=== PATIENT | female | born 1960 | race Caucasian/White ===

== ENCOUNTER 2016-12-08 14:22 | Outpatient (CLI) | payer MEDICARE ==
[2016-12-08 14:56] LABS: Hemoglobin A1c 5.8 % (4.0-6.0)
[2016-12-08 15:01] LABS: ALT (SGPT) 20 U/L (0-55); AST (SGOT) 14 U/L (5-34); Albumin 3.8 g/dL (3.5-5.0); Alkaline Phosphatase 123 U/L (40-150); Anion Gap 13 mmol/L (10-20); BUN (Urea Nitrogen) 12 mg/dL (9.8-20.1); Bilirubin, Total 0.3 mg/dL (0.2-1.2); Calc. Creatinine Clearance 0 mL/min (70-130); Calcium 9.3 mg/dL (7.8-10.44); Carbon Dioxide 29 mmol/L (22-29); Chloride 105 mmol/L (98-107); Estimated GFR-MDRD 76; Globulin 2.7 g/dL (2.4-3.5); Glucose 108 mg/dL (70-105); Potassium 4.1 mmol/L (3.5-5.1); Protein, Total 6.5 g/dL (6.0-8.3); Sodium 143 mmol/L (136-145)
[2016-12-08 15:34] LABS: Free T4 (Free Thyroxine) 0.92 ng/dL (0.70-1.48); Thyroid Stimulating Hormone 0.9963 uIU/mL (0.35-4.94); Vitamin D, 25 Hydroxy 25.3 ng/mL (> 30.0)
== END 2016-12-08 14:23 | disposition home or self-care (01) ==
LOC: MADLAB 14:22
PROVIDERS: ATTEND Internal Medicine
DX: E03.9 Hypothyroidism, unspecified (principal); E78.00 Pure hypercholesterolemia, unspecified; R79.89 Other specified abnormal findings of blood chemistry
CPT/HCPCS: 36415; 80053; 82306; 83036; 84439; 84443

== ENCOUNTER 2017-01-21 12:20 | Outpatient (CLI) | payer MEDICAID, MEDICARE ==
[2017-01-21 12:42] LABS: #Basophils 0.2 thou/uL (0.0-0.2); #Eosinphils 0.2 thou/uL (0.0-0.7); #Lymphocytes 1.5 thou/uL (1.20-3.40); #Monocytes 0.5 thou/uL (0.11-0.59); #Neutrophils 6.9 thou/uL (1.40-6.50); %Eosinophils 1.9 % (0.0-10.0); %Monocytes 5.4 % (0.0-10.0); %Neutrophils 74.7 % (42.0-75.0); Hemoglobin 15.2 g/dL (12.0-16.0); Mean Corpuscular HGB CONC 32.5 g/dL (32.0-36.0); Mean Corpuscular Volume 98.4 fl (81.0-99.0); Mean Platelet Volume 6.4 fL (7.4-10.4); Platelet Count 283 thou/uL (130-400); RBC Distribution Width 13.4 % (11.5-14.5); Red Blood Cell (RBC) Count 4.74 mill/uL (4.20-5.40); White Blood Cell (WBC) Count 9.2 thou/uL (4.8-10.8)
[2017-01-21 13:05] LABS: ALT (SGPT) 22 U/L (0-55); AST (SGOT) 15 U/L (5-34); Albumin 4.4 g/dL (3.5-5.0); Alkaline Phosphatase 165 U/L (40-150); Anion Gap 16 mmol/L (10-20); BUN (Urea Nitrogen) 19 mg/dL (9.8-20.1); Bilirubin, Total 0.3 mg/dL (0.2-1.2); CRP (Inflammatory) 1.61 mg/dL (= or < 0.5); Calc. Creatinine Clearance 0 mL/min (70-130); Calcium 9.6 mg/dL (7.8-10.44); Carbon Dioxide 25 mmol/L (22-29); Chloride 102 mmol/L (98-107); Estimated GFR-MDRD 74; Globulin 3.1 g/dL (2.4-3.5); Glucose 78 mg/dL (70-105); Protein, Total 7.5 g/dL (6.0-8.3); Sodium 139 mmol/L (136-145)
[2017-01-23 08:23] LABS: Antinuclear AB Negative (Negative)
== END 2017-01-21 12:21 | disposition home or self-care (01) ==
LOC: MADLAB 12:20
PROVIDERS: ATTEND Internal Medicine Rheumatology
DX: M06.4 Inflammatory polyarthropathy (principal)
CPT/HCPCS: 36415; 80053; 85025; 85652; 86038; 86140; 86200; 86430

== ENCOUNTER 2019-04-16 16:01 | Emergency (ER) | payer MEDICARE, OTHER ==
--- NOTE | 2019-04-16 16:47 | CT ---
Exam: Head CT without contrast HISTORY: Headache COMPARISON: 08/27/2013 FINDINGS: Hemorrhage: No intraparenchymal hemorrhage or extra-axial hematoma. Brain parenchyma: Cortical lamb-white matter differentiation is preserved. No mass effect or midline shift. Basilar cisterns are patent. Ventricular system: Ventricles and sulci are patent and symmetric. Calvarium: Intact. Sinuses and mastoid air cells: Mild mucosal disease involving the left ethmoid air cells and left sph enoid sinus. IMPRESSION: 1. No acute intracranial process 2. Left paranasal sinus disease.
[2019-04-16 16:58] LABS: #Basophils 0.1 thou/uL (0.0-0.2); #Eosinphils 0.2 thou/uL (0.0-0.7); #Lymphocytes 1.6 thou/uL (1.20-3.40); #Monocytes 0.4 thou/uL (0.11-0.59); #Neutrophils 7.5 thou/uL (1.40-6.50); %Eosinophils 2.3 % (0.0-10.0); %Monocytes 3.6 % (0.0-10.0); %Neutrophils 77.2 % (42.0-75.0); Hemoglobin 13.1 g/dL (12.0-16.0); Mean Corpuscular HGB CONC 31.8 g/dL (32.0-36.0); Mean Corpuscular Hemoglobin 30.1 pg (27.0-31.0); Mean Corpuscular Volume 94.7 fL (78.0-98.0); Mean Platelet Volume 5.4 fL (7.4-10.4); Platelet Count 253 thou/uL (130-400); RBC Distribution Width 13.5 % (11.5-14.5); Red Blood Cell (RBC) Count 4.34 mill/uL (4.20-5.40); White Blood Cell (WBC) Count 9.7 thou/uL (4.8-10.8)
[2019-04-16 16:58] LABS: Bilirubin Negative (Negative); Blood, Urine Negative (Negative); Clarity Clear (Clear); Glucose, Urine (Dipstick) Negative (Negative); Leukocyte Negative (Negative); Nitrite Negative (Negative); Protein, Urine (Dipstick) Negative (Neg-Trace); Urobilinogen 0.2 mg/dL (Less than 2)
[2019-04-16 17:12] LABS: Anion Gap 16 mmol/L (10-20); BUN (Urea Nitrogen) 14 mg/dL (9.8-20.1); Calc. Creatinine Clearance 0 mL/min (70-130); Calcium 9.6 mg/dL (7.8-10.44); Carbon Dioxide 28 mmol/L (22-29); Chloride 103 mmol/L (98-107); Estimated GFR-MDRD 67; Glucose 146 mg/dL (70-105); Potassium 3.7 mmol/L (3.5-5.1); Sodium 143 mmol/L (136-145)
== END 2019-04-16 17:30 | disposition home or self-care (01) ==
LOC: MADERS 16:01
DX: H81.399 Other peripheral vertigo, unspecified ear (principal); J01.90 Acute sinusitis, unspecified
CPT/HCPCS: 36415; 70450; 80048; 81003; 85025

== ENCOUNTER 2019-05-30 10:31 | Emergency (ER) | payer MEDICARE, OTHER ==
--- NOTE | 2019-05-30 11:15 | RAD ---
Radiograph left ankle 3 views: DATE: 05/30/2019 HISTORY: 58-year-old female with traumatic left ankle pain FINDINGS: There is a 5 mm focal ossific density in the soft tissues slightly inferior to the distal tip of the fibula. This is probably an accessory ossicle rather than an avulsion fracture. Lateral soft tissue swelling. Diffuse soft tissue edema to a lesser degree elsewhere. Talar dome is maintained. Ankle mor tise is congruent. No definite acute fracture identified. IMPRESSION: 1. No acute fracture. 2. Lateral soft tissue edema.
[2019-05-30] MEDS ORDERED: Ibuprofen 800 MG TAB ONE (11:26)
== END 2019-05-30 11:50 | disposition home or self-care (01) ==
LOC: MADERS 10:31
DX: S93.402A Sprain of unspecified ligament of left ankle, initial encounter (principal); W18.42XA Slipping, tripping and stumbling without falling due to stepping into hole or opening, initial encounter

== ENCOUNTER 2019-07-16 16:24 | Emergency (ER) | payer MEDICARE, OTHER ==
--- NOTE | 2019-07-16 17:32 | RAD ---
LEFT ANKLE: 07/16/19 Three views. HISTORY: Ankle pain. Comparison made to exam of 05/30/19. Soft tissue swelling is seen laterally. There is a new fragment seen from the lateral malleolus when compared to prior study indicating an av ulsion fracture which may be acute. Degenerative changes at the tibiotalar joint again noted. Spurring from the plantar calcaneus again n oted. IMPRESSION: Evidence of new avulsion fracture from the lateral malleolus when compared to prior study. POS: OFF
== END 2019-07-16 18:55 | disposition home or self-care (01) ==
LOC: MADERS 16:24
DX: S82.62XA Displaced fracture of lateral malleolus of left fibula, initial encounter for closed fracture (principal); Z86.711 Personal history of pulmonary embolism; Z79.899 Other long term (current) drug therapy; W18.30XA Fall on same level, unspecified, initial encounter
CPT/HCPCS: 27786

== ENCOUNTER 2019-12-16 13:30 | Emergency (ER) | payer MEDICARE, MEDICAID ==
--- NOTE | 2019-12-16 14:49 | RAD ---
TWO VIEW CHEST: HISTORY: Cough. FINDINGS: Lungs are clear. No infiltrate. Heart and mediastinum appear normal. Vasculature normal. Osseous structures unremarkable. IMPRESSION: No evidence of infiltrate. POS: [facility]
== END 2019-12-16 15:13 | disposition home or self-care (01) ==
LOC: MADERS 13:30
DX: R05 Cough (principal); R09.81 Nasal congestion; Z79.899 Other long term (current) drug therapy
CPT/HCPCS: 71046

== ENCOUNTER 2021-06-10 14:47 | Emergency (ER) | payer MEDICARE, OTHER ==
[2021-06-10] MEDS ORDERED: Sodium Chloride 0.9% 1,000 ML ONE (15:32)
[2021-06-10 15:33] LABS: #Basophils 0.1 thou/uL (0.0-0.2); #Lymphocytes 0.6 thou/uL (1.20-3.40); #Monocytes 0.6 thou/uL (0.11-0.59); #Neutrophils 9.8 thou/uL (1.40-6.50); %Basophils 1.1 % (0.0-1.0); %Eosinophils 0.3 % (0.0-10.0); %Lymphocytes 5.1 % (21.0-51.0); %Monocytes 5.4 % (0.0-10.0); %Neutrophils 88.1 % (42.0-75.0); Anisocytosis SLIGHT = 6-15 cells (100X) (0-5/hpf); Hemoglobin 12.3 g/dL (12.0-16.0); MDiff Complete? YES; Macrocytosis SLIGHT = 6-15 cells (100X) (0-5/hpf); Mean Corpuscular HGB CONC 30.6 g/dL (32.0-36.0); Mean Corpuscular Hemoglobin 32.2 pg (27.0-31.0); Mean Corpuscular Volume 105.5 fL (78.0-98.0); Platelet Count 221 thou/uL (130-400); RBC Distribution Width 17.3 % (11.5-14.5); Red Blood Cell (RBC) Count 3.82 mill/uL (4.20-5.40); White Blood Cell (WBC) Count 11.2 thou/uL (4.8-10.8)
[2021-06-10 15:45] LABS: ALT (SGPT) 28 U/L (8-55); AST (SGOT) 17 U/L (5-34); Albumin 3.9 g/dL (3.4-4.8); Alkaline Phosphatase 124 U/L (40-110); Anion Gap 14 mmol/L (10-20); BUN (Urea Nitrogen) 10 mg/dL (9.8-20.1); Bilirubin, Total 0.3 mg/dL (0.2-1.2); Calc. Creatinine Clearance 0 mL/min (70-130); Calcium 10.1 mg/dL (7.8-10.44); Carbon Dioxide 29 mmol/L (23-31); Chloride 107 mmol/L (98-107); Globulin 3.3 g/dL (2.4-3.5); Glucose 106 mg/dL (80-115); Lipase 39 U/L (8-78); Potassium 3.6 mmol/L (3.5-5.1); Protein, Total 7.2 g/dL (5.8-8.1); Sodium 146 mmol/L (136-145)
== END 2021-06-10 16:35 | disposition home or self-care (01) ==
LOC: MADERS 14:47
DX: R11.2 Nausea with vomiting, unspecified (principal); R10.84 Generalized abdominal pain; J44.9 Chronic obstructive pulmonary disease, unspecified; K21.9 Gastro-esophageal reflux disease without esophagitis; Z86.711 Personal history of pulmonary embolism; Z85.6 Personal history of leukemia
CPT/HCPCS: 36415; 80053; 83690; 85025; 96372; 99284; J0500; J7050

== ENCOUNTER 2021-06-25 21:03 | Emergency (ER) | payer MEDICARE, OTHER ==
[2021-06-25] MEDS ORDERED: Morphine 2 MG/ML VIAL ONE (21:26)
[2021-06-25] MEDS ORDERED: Fentanyl 100 MCG/2 ML VIAL ONE ×2 (21:30→23:19)
[2021-06-25] MEDS ORDERED: Boostrix 0.5 ML (Tdap) VIAL ONE (22:06)
[2021-06-25] MEDS ORDERED: Bacitracin 1 PK ONE (23:31)
== END 2021-06-26 00:29 | disposition home or self-care (01) ==
LOC: MADERS 21:03
DX: S70.01XA Contusion of right hip, initial encounter (principal); S80.211A Abrasion, right knee, initial encounter; E03.9 Hypothyroidism, unspecified; J44.9 Chronic obstructive pulmonary disease, unspecified; K21.9 Gastro-esophageal reflux disease without esophagitis; Z79.899 Other long term (current) drug therapy; M25.511 Pain in right shoulder; Z23 Encounter for immunization; Z86.711 Personal history of pulmonary embolism; W18.30XA Fall on same level, unspecified, initial encounter; Y92.000 Kitchen of unspecified non-institutional (private) residence as the place of occurrence of the external cause
CPT/HCPCS: 71045; 72170; 90471; 90715; 96374; 96376; J2270; J3010

== ENCOUNTER 2021-07-03 14:42 | Emergency (ER) | payer MEDICARE, OTHER ==
[2021-07-03 15:45] LABS: Anisocytosis SLIGHT = 6-15 cells (100X) (0-5/hpf); Eosinophils 3 % (0-10); Hemoglobin 11.4 g/dL (12.0-16.0); Lymphocytes 44 % (21-51); MDiff Complete? YES; Macrocytosis SLIGHT = 6-15 cells (100X) (0-5/hpf); Mean Corpuscular HGB CONC 29.9 g/dL (32.0-36.0); Mean Corpuscular Volume 106.9 fL (78.0-98.0); Mean Platelet Volume 5.8 fL (7.4-10.4); Monocytes 5 % (0-10); Neutrophil 45 % (42-75); Ovalocytes SLIGHT = 2-5 cells (100X) (0-1/hpf); Platelet Count 312 thou/uL (130-400); Poikilocytosis SLIGHT = 6-15 cells (100X) (0-5/hpf); RBC Distribution Width 18.9 % (11.5-14.5); Reactive Lymphocytes 1 % (0-10); Red Blood Cell (RBC) Count 3.57 mill/uL (4.20-5.40); Rouleaux Formation SLIGHT = 1-5 cells (100X) (None Seen); Tear Drops SLIGHT = 2-5 cells (100X) (0-1/hpf); White Blood Cell (WBC) Count 1.2 thou/uL (4.8-10.8)
== END 2021-07-03 16:27 | disposition home or self-care (01) ==
LOC: MADERS 14:42
DX: S70.01XA Contusion of right hip, initial encounter (principal); S70.11XA Contusion of right thigh, initial encounter; S80.811A Abrasion, right lower leg, initial encounter; S80.211A Abrasion, right knee, initial encounter; D72.819 Decreased white blood cell count, unspecified; E03.9 Hypothyroidism, unspecified; J44.9 Chronic obstructive pulmonary disease, unspecified; K21.9 Gastro-esophageal reflux disease without esophagitis; Z86.711 Personal history of pulmonary embolism; Z79.899 Other long term (current) drug therapy; W19.XXXA Unspecified fall, initial encounter
CPT/HCPCS: 36415; 85025; 99283

== ENCOUNTER 2021-10-24 18:19 | Emergency (ER) | payer MEDICARE, MEDICAID ==
[2021-10-24 20:13] LABS: Anion Gap 15 mmol/L (10-20); BUN (Urea Nitrogen) 15 mg/dL (9.8-20.1); Calc. Creatinine Clearance 0 mL/min (70-130); Calcium 10.1 mg/dL (7.8-10.44); Carbon Dioxide 26 mmol/L (23-31); Chloride 108 mmol/L (98-107); Glucose 137 mg/dL (80-115); Potassium 4.6 mmol/L (3.5-5.1); Sodium 144 mmol/L (136-145)
[2021-10-24 20:19] LABS: Mean Corpuscular HGB CONC 33.2 g/dL (32.0-36.0); Mean Corpuscular Hemoglobin 32.6 pg (27.0-31.0); Mean Platelet Volume 12.6 fL (7.4-10.4); Platelet Count 18 thou/uL (130-400); RBC Distribution Width 14.5 % (11.5-14.5); Red Blood Cell (RBC) Count 2.45 mill/uL (4.20-5.40); White Blood Cell (WBC) Count 0.8 thou/uL (4.8-10.8)
[2021-10-24 20:20] LABS: Lymphocytes 70 % (21-51); MDiff Complete? YES; Monocytes 26 % (0-10); Neutrophil 4 % (42-75); Tear Drops SLIGHT = 2-5 cells (100X) (0-1/hpf)
[2021-10-24 20:21] LABS: Ovalocytes SLIGHT = 2-5 cells (100X) (0-1/hpf); Platelet Morphology Comment Appears Decreased
[2021-10-24] MEDS ORDERED: cefTRIAXone\\ROCEPHIN 1 GM VIAL ONE (20:51)
[2021-10-24] MEDS ORDERED: Sodium Chloride 0.9% 250 ML 250 ML ONE (20:51)
[2021-10-24] MEDS ORDERED: Sodium Chloride 0.9% 100 ML ONE (20:51)
[2021-10-24] MEDS ORDERED: Acetaminophen 500 MG TAB ONE (21:33)
[2021-10-24 22:29] LABS: SARS-CoV-2 NAA Rapid Test Not Detected (NotDetected)
== END 2021-10-24 23:00 | disposition short-term general hospital (02) ==
LOC: MADERS 18:19
DX: D61.9 Aplastic anemia, unspecified (principal); D70.9 Neutropenia, unspecified; D69.6 Thrombocytopenia, unspecified; Z20.822 Contact with and (suspected) exposure to COVID-19; E03.9 Hypothyroidism, unspecified; J44.9 Chronic obstructive pulmonary disease, unspecified; K21.9 Gastro-esophageal reflux disease without esophagitis; Z79.899 Other long term (current) drug therapy
CPT/HCPCS: 0240U; 36415; 70450; 71045; 80048; 83605; 83880; 85025; 85060; 87040; 96365; 96367; J0696; J3370; J3490; J7050